=== PATIENT | female | born 1950 | race Caucasian/White ===

== ENCOUNTER 2019-06-06 10:30 | Observation (INO) ==
[2019-06-06 12:13] LABS: Glucose * 151 mg/dL (70-110)
[2019-06-06 12:14] LABS: Anion Gap 14.6 mmol/L (6.8-13.8); BUN/Creatinine Ratio 10.5 (9.0-21.6); Blood Urea Nitrogen 18 mg/dL (3-23); Calcium * 9.6 mg/dL (7.9-10.9); Carbon Dioxide 26.9 mmol/L (24-32.6); Chloride 102 mmol/L (97-106); Ferritin 198 ng/mL (8-252); Potassium 4.5 mmol/L (3.4-4.6); Sodium 139 mmol/L (132-142)
[2019-06-06] MEDS ORDERED: traMADol HCL 50 MG TABLET PO PRN (13:02)
[2019-06-06 13:40] LABS: Prothrombin Time (Patient) 25.1 Seconds (9.1-10.7)
[2019-06-06 13:51] LABS: INR 2.63 INR (0.92-1.08)
[2019-06-06] MEDS ORDERED: NORMAL SALINE 1,000 ML IV ONE (14:01)
[2019-06-06] MEDS: INSULIN LISPRO 100 UNITS/ML VIAL SC SCH (16:37)
--- NOTE | 2019-06-06 16:38 | PN ---
Aaln Note - Interim Date: 06/06/19 Time: 16:27 Narrative: 06/06/19 16:27 Barbara is a 68-year-old white female who was admitted to my office because of bradycardia and dyspnea on exertion. Her twelve-lead EKG showed sinus bradycardia of 33 with first-degree AV block. She already had taken her morning digoxin and metoprolol. The patient was admitted for observation and placed on telemetry. She has been running in the 30s to 50s. We will hold her metoprolol and digoxin. Her digoxin level is still pending. Her thyroid function tests were within normal limits. We will defer from giving atropine at this time. If she becomes more symptomatic we may also need to put her on a transcutaneous pacemaker. I saw Barbara this afternoon in the [facility] floor and in my history and physical findings from my office still remain the same. My H&P for this admission will be from my clinic note visits.
[2019-06-06] MEDS ORDERED: WARFARIN SODIUM 2 MG TABLET PO SCH (17:00)
[2019-06-06 17:58] LABS: Iron 90 mcg/dL (35-120); Transferrin Sat. (% Sat.) 22 % (15-55)
[2019-06-06 18:30] LABS: Digoxin 1.4 ng/mL (0.5-2.0)
[2019-06-06] MEDS: CALCIUM CARBONATE/VITAMIN D3 1 TAB TABLET PO SCH (20:45)
[2019-06-06] MEDS: FERROUS SULFATE 325 MG TABLET PO SCH (20:45)
[2019-06-06] MEDS: ACETAMINOPHEN 325 MG TABLET PO SCH (20:46)
[2019-06-06] MEDS ORDERED: INSULIN GLARGINE,HUM.REC.ANLOG 100 UNITS/ML VIAL SC SCH (21:00)
[2019-06-06] MEDS ORDERED: SIMVASTATIN 10 MG TABLET PO SCH (21:00)
[2019-06-06] MEDS ORDERED: INSULIN DEGLUDEC 30 UNIT SC SCH (21:00)
[2019-06-07] MEDS: INSULIN LISPRO 100 UNITS/ML VIAL SC SCH ×2 (06:45→11:34)
[2019-06-07] MEDS ORDERED: FUROSEMIDE 20 MG TABLET PO SCH (09:00)
[2019-06-07] MEDS ORDERED: POTASSIUM CHLORIDE 10 MEQ TABLET.SA PO SCH (09:00)
[2019-06-07] MEDS ORDERED: ASCORBIC ACID 500 MG TABLET PO SCH (09:00)
[2019-06-07] MEDS ORDERED: DIGOXIN 0.125 MG TABLET PO SCH (09:00)
[2019-06-07] MEDS ORDERED: PARoxetine HCL 20 MG TABLET PO SCH (09:00)
[2019-06-07] MEDS ORDERED: SENNOSIDES/DOCUSATE SODIUM 1 TAB TABLET PO SCH (09:00)
[2019-06-07] MEDS ORDERED: ENALAPRIL MALEATE 5 MG TABLET PO SCH (09:00)
[2019-06-07] MEDS ORDERED: FENOFIBRATE,MICRONIZED 134 MG CAPSULE PO SCH (09:00)
[2019-06-07] MEDS: FERROUS SULFATE 325 MG TABLET PO SCH (09:20)
[2019-06-07] MEDS: CALCIUM CARBONATE/VITAMIN D3 1 TAB TABLET PO SCH (09:20)
[2019-06-07] MEDS: ACETAMINOPHEN 325 MG TABLET PO SCH (09:21)
--- NOTE | 2019-06-07 12:30 | DS ---
(1) Bradycardia Problem: Acute (2) JOHNSON (dyspnea on exertion) Problem: Acute (3) Chronic a-fib Problem: Chronic (4) Depression Problem: Chronic Qualifiers: (5) Hypercholesterolemia Problem: Chronic (6) Type II diabetes mellitus Problem: Chronic Qualifiers: Date of Discharge:: 06/07/19 Description of Stay: Barbara Pantoja is a 68 year old female patient with past medical history of AFib, Hypertension, DM type 2 ,who presented to the clinic on 06/06/2019 for a 3 month follow up visit. She felt like her A-fib is acting up. She denies chest pain, palpitations but relates that she is having some shortness of breath with exertion. She would walk a few steps and would have to take deep breaths because she is short of breath. Her blood work done on 05/31/2019 showed a hemoglobin of 11.2, MCV of 90.5, sodium 137 potassium of 4.4, creatinine 1.61, as GFR of 34, HbA1c of 9% equivalent to mean blood glucose of 214. Her EKG showed Sinus bradycardia of 33, 1st degree AV block. She was admitted for observation and further evaluation. Her TFT were WNL. Her digoxin level was 1.4. She had already taken her morning metoprolol and digoxin. This were put on hold on her admission. In effect , this is her first day w/o digoxin and he is has had two doses of her metorpolol held. She remains in the 30's to low 50's but asymptomatic. I showed the EKG and talked to Dr. 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 Myrick. Barbara is confined /homebound due to chronic conditions- AFib, bradycardia causing JOHNSON. The need for assisted is for medication and heart rate monitoring. The need for home health care skilled services is directly related to the time spent face to face. Procedures Performed: none Results and Findings: Lab Pending Results 06/06/19 10:38: Sodium 139, Plasma Sodium 140, Potassium 4.5, Chloride 102, Carbon Dioxide 26.9, Anion Gap 14.6 H, BUN 18, Creatinine 1.72 H, Est GFR (Non- Af Amer) 31 L, BUN/Creatinine Ratio 10.5, Random Glucose 151 H, Calcium 9.6, Ferritin 198, Vitamin B12 404, Folate Greater than 20.0, Digoxin 1.4 D 06/06/19 10:38: Iron 90, TIBC 416, Transferrin % Sat 22 06/06/19 10:38: TSH (Reflex) 3.002 06/06/19 13:34: PT 25.1 H, INR (Anticoag Therapy) 2.63 H Discharge Location: Home Disposition: Home Health Service Home Health Agency: [facility] Condition: Stable Face to Face Encounter completed per [facility] Guidelines: Yes Discharge Activity: Activity as tolerated Discharge Diet: Consistent carbs Referrals: Cynthia Mittal MD [Primary Care Provider] - Additional Patient Instructions (free text): [facility] new at discharge. Fax orders, discharge summary, med list, and call report at discharge. Follow up with . Follow up with on . Prescriptions (Any new or edited meds): Insulin Degludec [Tresiba Flextouch U-100] 35 unit SUBCUT HS #15 ml Transmission Status: Pending to [facility] Mail Delivery Complete Home Medications List: Complete Home Medication List: Calcium Carbonate/Vitamin D3 [Calcium 600 + Vit D Tablet] 1 ea PO BID 02/12/13 Docusate Sodium 100 mg PO PRN PRN 10/07/13 Acetaminophen [Tylenol] 650 mg PO BID 05/17/14 nitroglycerin 0.4 mg sublingual tablet 0.4 mg SL [id number] PRN #30 tab 02/11/18 tramadol 50 mg tablet 50 mg PO Q6H PRN #56 tab 05/06/18 blood sugar diagnostic See Dose Instructions .ROUTE .MEDSUPPLY #100 ea 06/08/18 calcipotriene 0.005 % topical cream 1 applic TP DAILY #120 g 06/30/18 Compression Stockings 0 .ROUTE .MEDSUPPLY #1 ea 08/06/18 enalapril maleate 5 mg tablet 5 mg PO DAILY #90 tab 08/06/18 furosemide 20 mg tablet 20 mg PO DAILY #90 tab 08/06/18 metoprolol tartrate 50 mg tablet 50 mg PO BID #180 tab 08/12/18 fenofibrate 160 mg tablet 160 mg PO DAILY #90 tab 09/30/18 Loratadine 10 mg PO DAILY 11/01/18 Sennosides/Docusate Sodium [Senna-S Tablet] 1 tab PO DAILY 11/01/18 ascorbic acid (vitamin C) 500 mg capsule 500 mg PO DAILY cap 11/01/18 glimepiride 4 mg tablet 6 mg PO DAILY 90 Days #135 tab 11/01/18 lancets See Dose Instructions .ROUTE .MEDSUPPLY #204 ea 11/01/18 simvastatin 20 mg tablet 10 mg PO HS #90 tab 11/01/18 alcohol swabs 1 pad TP QDAY #100 ea 12/03/18 pen needle, diabetic 31 gauge x 12/09" See Dose Instructions .ROUTE .MEDSUPPLY #100 ea 12/03/18 potassium chloride 10 mEq tablet,extended release(part/cryst) 10 meq PO Q48H #45 tab 12/07/18 omega-3 acid ethyl esters 1 gram capsule 4 cap PO DAILY #360 cap 01/18/19 paroxetine HCl 20 mg tablet 20 mg PO DAILY #90 tab 01/18/19 Durable Medical Equipment See Rx Instructions .ROUTE .COMPLEX #1 ea 03/03/19 ferrous sulfate 324 mg (65 mg iron) tablet,delayed release 325 mg PO BID tab 03/03/19 Warfarin Sodium 2 mg PO DAILY 06/06/19 Insulin Degludec [Tresiba Flextouch U-100] 35 unit SUBCUT HS #15 ml 06/07/19
[2019-06-07 13:51] VITALS: BP 125/38
== END 2019-06-07 14:20 | disposition home health service (06) ==
LOC: MS 10:30 → LAB 10:30
PROVIDERS: ADMIT Internal Medicine; ATTEND Internal Medicine
CPT/HCPCS: 36415; 80048; 80162; 82607; 82728; 82746; 83540; 83550; 84443; 85610; 93005; G0378; G0379

== ENCOUNTER 2020-11-01 09:54 | Observation (INO) ==
[2020-11-01 10:26] LABS: Hematocrit 44.4 % (37.0-47.0); Hemoglobin 14.3 gm/dL (12.5-16.0); Mean Cell Volume 87.1 fl (78-100); Mean Corpuscular Hgb Conc 32.2 g/dl (32-36); Mean Platelet Volume 10.3 fl (8-12.5); Platelet Count 205 K/mm3 (150-450); Red Cell Distribution Width 12.8 % (11.5-14.0); White Blood Count 5.4 K/mm3 (4.0-10.5)
[2020-11-01 10:30] LABS: Total Cells Counted 100
[2020-11-01 10:46] LABS: Hemoglobin A1C 12.8 % (3.80-5.60)
[2020-11-01 10:47] LABS: Anion Gap 8.5 mmol/L (6.8-13.8); BUN/Creatinine Ratio 17.5 (9.0-21.6); Blood Urea Nitrogen 20 mg/dL (3-23); Calcium * 8.9 mg/dL (7.9-10.9); Carbon Dioxide 26.6 mmol/L (24-32.6); Chloride 94 mmol/L (97-106); Glucose * 500 mg/dL (70-110); Potassium 4.1 mmol/L (3.4-4.6); Sodium 125 mmol/L (132-142); TSH * 2.051 uIU/mL (0.358-3.74)
[2020-11-01 10:48] LABS: Basophil 1 % (0-1); Eosinophil 3 % (0-3); Immature Granulocyte 2 (0-1); Lymphocyte 16 % (20-51); Monocyte 12 % (0-9); Neutrophil 66 % (42-75); Neutrophil # 3.6 K/mm3 (1.3-6.0)
[2020-11-01 10:49] LABS: Platelet Estimate Normal (NORMAL)
[2020-11-01 10:50] LABS: RBC Morphology Normal (NORMAL)
[2020-11-01] MEDS ORDERED: NITROGLYCERIN 0.4 MG/TAB BTL SL PRN (14:07)
[2020-11-01] MEDS ORDERED: ACETAMINOPHEN 325 MG TABLET PO PRN (14:07)
[2020-11-01] MEDS ORDERED: traMADol HCL 50 MG TABLET PO PRN (14:07)
[2020-11-01] MEDS: POTASSIUM CHLORIDE 10 MEQ in NORMAL SALINE 1,000 ML IV SCH ×2 (14:23→23:44)
[2020-11-01] MEDS: CIPROFLOXACIN IN 5 % DEXTROSE 200 MG/100 ML BAG IV SCH (14:26)
[2020-11-01] MEDS: INSULIN LISPRO 100 UNITS/ML VIAL SC SCH ×2 (16:50→20:53)
[2020-11-01] MEDS ORDERED: WARFARIN SODIUM 4 MG TABLET PO SCH (17:00)
--- NOTE | 2020-11-01 17:47 | PN ---
Progesviktor Note - Interim Date: 11/01/20 Time: 17:40 Narrative: 11/01/20 17:40 I saw and examined this patient in the floor and reviewed her other labs. We continue with thecurrent meeciations and present management. My clinic visit notes will serve as my H & P for this admission.
[2020-11-01] MEDS: NYSTATIN 30 APPL TUBE TP SCH (20:52)
[2020-11-01] MEDS: CALCIUM CARBONATE/VITAMIN D3 1 TAB TABLET PO SCH (20:52)
[2020-11-01] MEDS: FERROUS SULFATE 325 MG TABLET PO SCH (20:53)
[2020-11-01] MEDS ORDERED: INSULIN GLARGINE,HUM.REC.ANLOG 100 UNITS/ML VIAL SC SCH (21:00)
[2020-11-01] MEDS: METOPROLOL TARTRATE 25 MG TABLET PO SCH (21:01)
[2020-11-02] MEDS: CIPROFLOXACIN IN 5 % DEXTROSE 200 MG/100 ML BAG IV SCH (00:42)
[2020-11-02 06:55] LABS: BUN/Creatinine Ratio 13.2 (9.0-21.6); Calcium * 8.8 mg/dL (7.9-10.9); Carbon Dioxide 28.9 mmol/L (24-32.6); Estimated Creat Clear 46.5; Potassium 3.9 mmol/L (3.4-4.6)
[2020-11-02] MEDS: INSULIN LISPRO 100 UNITS/ML VIAL SC SCH (07:30)
[2020-11-02] MEDS: CALCIUM CARBONATE/VITAMIN D3 1 TAB TABLET PO SCH (08:12)
[2020-11-02] MEDS: FERROUS SULFATE 325 MG TABLET PO SCH (08:12)
[2020-11-02] MEDS: METOPROLOL TARTRATE 25 MG TABLET PO SCH (08:13)
[2020-11-02] MEDS: NYSTATIN 30 APPL TUBE TP SCH (08:13)
[2020-11-02] MEDS ORDERED: EZETIMIBE 10 MG TABLET PO SCH (09:00)
[2020-11-02] MEDS ORDERED: PARoxetine HCL 20 MG TABLET PO SCH (09:00)
[2020-11-02] MEDS ORDERED: FENOFIBRATE,MICRONIZED 134 MG CAPSULE PO SCH (09:00)
[2020-11-02] MEDS ORDERED: SENNOSIDES/DOCUSATE SODIUM 1 TAB TABLET PO SCH (09:00)
[2020-11-02] MEDS ORDERED: ENALAPRIL MALEATE 5 MG TABLET PO SCH (09:00)
[2020-11-02] MEDS ORDERED: OMEGA-3 FATTY ACIDS 1 CAP CAPSULE PO SCH (09:00)
--- NOTE | 2020-11-02 09:09 | DS ---
(1) Hyperglycemia Problem: Resolved (2) Hyponatremia Problem: Resolved (3) (HFpEF) heart failure with preserved ejection fraction Problem: Chronic Qualifiers: Heart failure chronicity: chronic Qualified Code(s): I50.32 - Chronic diastolic (congestive) heart failure (4) Atrial fibrillation Problem: Chronic Qualifiers: Atrial fibrillation type: unspecified chronic Qualified Code(s): I48.20 - Chronic atrial fibrillation, unspecified (5) CRF (chronic renal failure) Problem: Chronic Qualifiers: Chronic kidney disease stage: stage 3 (moderate) (6) Depression Problem: Chronic Qualifiers: Depression Type: unspecified Qualified Code(s): F32.9 - Major depressive disorder, single episode, unspecified (7) Diabetes type 2, uncontrolled Problem: Chronic Qualifiers: Glycemic state: with hyperglycemia Qualified Code(s): E11.65 - Type 2 diabetes mellitus with hyperglycemia (8) Essential hypertension Problem: Chronic (9) Hypercholesterolemia Problem: Chronic (10) Mitral valve disease Problem: Chronic (11) Weakness Problem: Resolved (12) Excessive sleepiness Problem: Resolved Date of Discharge:: 11/02/20 Hospital Course: Barbara Pantoja is a 70-year-old white female who presents to the office today as a follow-up from the emergency room where she was seen on October 28, 2020 for lethargy and weakness. She was found to be dehydrated and given a liter of IV fluids. She had some dysuria but she had no UTI. Her blood sugar was 142 sodium was one thirty-two. Her potassium was 2.9 and this was replenished. She was then discharged. She says that she has been feeling very weak ever since, tired all the time and sleeping most of the time. She also has some dizziness. She also claims that her blood sugars have been running high with increased frequency of urination. She checked her blood sugar before she came to the office and it read high. She gave herself 14 units of Humalog. We did Accu- Chek in the office which showed that her sugar was four hundred fifty-seven. We gave her 10 units of Humalog. Her blood work shows her potassium is back to normal at 4.1 however her sodium was one twenty-five with a plasma sodium of one thirty-one, chloride of ninety-four, GFR of fifty with a creatinine of 1.14, random blood sugar of five hundred, HbA1c of 12.8%, serum ketones negative. Her TSH was normal. We rechecked her Accu-Chek which showed she was down to 370. Currently she is here for annual wellness visit she is for MRA was not last year she says she wants to have it she says she is milligrams colonoscopy she was back in 2067 generalized leg and the other Enterococcus urination with no fevers. As per her niece the patient has been having episodes of confusions. We will admit patient for observation due to her hyponatremia and hyperglycemia. We gave her IVF with NSS and 10 meq of KCL . We covered her with humalog sliding scale following moderate dose protocol and gave her 35 units of lantus. Her BS this morning normoglycemic and Na is slightly high at 143. She syas she is feeling night and day-no longer weak and not feeling sleepy. Her GFR also improved and will resume her back on metformin. We will doscharge her today on same insulin dosage. Follow up with me in 1 week with BS diary. Procedures Performed: none Results and Findings: Pending Mircobiology Results 11/01/20 11:53 Urine,Clean Catch Urine Culture - Preliminary Beta Hemolytic Strep Gram Negative Bacilli Lab Pending Results 11/01/20 09:59: WBC 5.4, RBC 5.10, Hgb 14.3, Hct 44.4, MCV 87.1, MCH 28.0, MCHC 32.2, RDW 12.8, Plt Count 205, MPV 10.3, Neutrophils % (Manual) 66, Lymphocytes % (Manual) 16 L, Monocytes % (Manual) 12 H, Eosinophils % (Manual) 3, Basophils % (Manual) 1, Immature Granulocytes 2 H, Neutrophils # (Manual) 3.6, Lymphocytes # (Manual) 0.9 L, Monocytes # (Manual) 0.6, Eosinophils # (Manual) 0.2, Basophils # (Manual) 0.1, Platelet Estimate Normal, RBC Morphology Normal 11/01/20 09:59: Sodium 125 L, Plasma Sodium 131, Potassium 4.1 D, Chloride 94 L, Carbon Dioxide 26.6, Anion Gap 8.5, BUN 20, Creatinine 1.14, Est GFR (Non-Af Amer) 50 L D, BUN/Creatinine Ratio 17.5, Random Glucose 500 H, Calcium 8.9, TSH 2.051, Serum Ketones Negative 11/01/20 09:59: Mean Blood Glucose 321, Hemoglobin A1c 12.8 H 11/01/20 10:00: B-Natriuretic Peptide 692 H 11/01/20 12:15: SARS-CoV-2 (PCR) Not detected 11/01/20 21:23: Ur Random Sodium 16 L 11/02/20 06:30: Sodium 143 H, Plasma Sodium 143 H, Potassium 3.9, Chloride 107 H, Carbon Dioxide 28.9, Anion Gap 11.0, BUN 14, Creatinine 1.06, Est GFR (Non-Af Amer) 54 L, BUN/Creatinine Ratio 13.2, Random Glucose 72 D, Calcium 8.8 Discharge Location: Home Disposition: Home self-care Condition: Stable Discharge Activity: Activity as tolerated Discharge Diet: Consistent carbs Referrals: Cynthia Mittal MD [Primary Care Provider] - Additional Patient Instructions (free text): Follow up with PCP with BS diary. Prescriptions (Any new or edited meds): metFORMIN HCL [Metformin HCl ER] 500 mg PO DAILY #30 tab.er.24h Transmission Status: Pending to [facility], [place], [place] PARoxetine HCL [Paroxetine HCl] 40 mg PO DAILY #60 Complete Home Medications List: Complete Home Medication List: Calcium Carbonate/Vitamin D3 [Calcium 600 + Vit D Tablet] 1 ea PO BID 02/12/13 Acetaminophen [Tylenol] 650 mg PO BID PRN 05/17/14 nitroglycerin 0.4 mg sublingual tablet 0.4 mg SL [id number] PRN #30 tab 02/11/18 calcipotriene 0.005 % topical cream 1 applic TP DAILY #120 g 06/30/18 Sennosides/Docusate Sodium [Senna-S Tablet] 1 tab PO DAILY 11/01/18 pen needle, diabetic 31 gauge x 5/16" See Dose Instructions .ROUTE .MEDSUPPLY #100 ea 12/03/18 ferrous sulfate 324 mg (65 mg iron) tablet,delayed release 325 mg PO BID tab 03/03/19 blood sugar diagnostic See Dose Instructions .ROUTE .MEDSUPPLY #400 ea 02/23/20 lancets See Dose Instructions .ROUTE .MEDSUPPLY #400 ea 02/23/20 tramadol 50 mg tablet 50 mg PO Q6H PRN #56 tab 04/24/20 ezetimibe 10 mg tablet 10 mg PO DAILY #90 tab 08/09/20 blood-glucose meter See Rx Instructions .ROUTE .MEDSUPPLY #1 ea 08/16/20 enalapril maleate 5 mg tablet 5 mg PO DAILY #90 tab 08/17/20 fenofibrate 160 mg tablet 160 mg PO DAILY #90 tab 08/17/20 furosemide 20 mg tablet 40 mg PO DAILY #180 tab 08/17/20 potassium chloride 10 mEq tablet,extended release(part/cryst) 20 meq PO DAILY #180 tab 08/17/20 alcohol swabs See Rx Instructions .ROUTE .COMPLEX #100 unknown measurement unit code: swab 08/20/20 omega-3 acid ethyl esters 1 gram capsule 4 cap PO DAILY #360 cap 08/20/20 pen needle, diabetic 32 gauge x 5/32" See Rx Instructions .ROUTE .MEDSUPPLY #100 ea 09/21/20 warfarin 1 mg tablet 2 mg PO DAILY #90 tab 09/21/20 Nystatin [Mycostatin Cream] 1 appl TP BID #1 tube 10/28/20 Insulin Aspart [Novolog Flexpen] 10 unit SUBCUT TID 11/01/20 Metoprolol Tartrate 25 mg PO BID 11/01/20 insulin degludec 100 unit/mL (3 mL) subcutaneous pen 30 unit SUBCUT HS #15 ml 11/01/20 PARoxetine HCL [Paroxetine HCl] 40 mg PO DAILY #60 11/02/20 metFORMIN HCL [Metformin HCl ER] 500 mg PO DAILY #30 tab.er.24h 11/02/20 Amb Orders for Discharge: Basic Metabolic Panel Time Frame: 1 Week, Facility: [facility], Location: Laboratory Prothrombin Time Time Frame: 1 Week, Facility: [facility], Location: Laboratory
[2020-11-02 09:38] LABS: Prothrombin Time (Patient) 22.1 Seconds (9.1-10.7)
[2020-11-02 09:42] LABS: INR 2.21 INR (0.92-1.08)
[2020-11-02 11:01] VITALS: BP 106/57
[2020-11-02] MEDS ORDERED: WARFARIN SODIUM 2 MG TABLET PO SCH (17:00)
== END 2020-11-02 11:22 | disposition home or self-care (01) ==
LOC: LAB 09:54 → MS 09:54
PROVIDERS: ADMIT Internal Medicine; ATTEND Internal Medicine
DX: E11.65 Type 2 diabetes mellitus with hyperglycemia; I48.20 Chronic atrial fibrillation, unspecified; N18.30 Chronic kidney disease, stage 3 unspecified; I13.0 Hypertensive heart and chronic kidney disease with heart failure and stage 1 through stage 4 chronic kidney disease, or unspecified chronic kidney disease; F32.9 Major depressive disorder, single episode, unspecified; I50.32 Chronic diastolic (congestive) heart failure; Z79.4 Long term (current) use of insulin; E11.22 Type 2 diabetes mellitus with diabetic chronic kidney disease; E87.1 Hypo-osmolality and hyponatremia